=== PATIENT | male | born 1975 | race Caucasian/White ===

== ENCOUNTER 2018-06-04 18:08 | Observation (INO) | payer OTHER ==
[~2018-06-04] VITALS: Ht 185.4 cm; Wt 74.8 kg
[2018-06-04 18:35] VITALS: BP 144/84
--- NOTE | 2018-06-04 18:43 | NUR ---
PT AMBULATES TO BED 5
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
[2018-06-04] MEDS ORDERED: ESCI20TA PO (18:55)
[2018-06-04] MEDS ORDERED: HUM SUBQ (18:55)
[2018-06-04] MEDS ORDERED: FAMO-90 PO (18:55)
--- NOTE | 2018-06-04 19:00 | NUR ---
DR. BALL WANTS TO ASSESS/EVALUATE PATIENT FIRST PRIOR TO 5150 HOLD.TELE PSYCH. CONSULT.CARLOS,EMT WATCHING PATIENT
--- NOTE | 2018-06-04 19:15 | NUR ---
PT IS SITTING UP IN BED, FATHER AT BEDSIDE. WAITING TO TALK TO TELE-PSYCH.
--- NOTE | 2018-06-04 19:21 | NUR ---
REPORT GIVEN TO HUGO CIFUENTES AT THIS TIME. TRANSFER OF CARE.
--- NOTE | 2018-06-04 19:35 | NUR ---
Note maurice in ED - 06/04/18 at 2203 by [email or web address] [place] TO PUT PT ON A HOLD. MADE AWARE. LOOKING FOR PALCEMENT. COMFORT MEASURES OFFERED FOR PT. PT TOLERATED WELL.
--- NOTE | 2018-06-04 19:45 | NUR ---
SPOKE TO PT. PT IS CONCERNED THAT HE IS NOT SAFE AT HOME. HE FEELS SAFE IN ER, RIGHT NOW. HE IS DEPRESSED AND HAS ANXIETY. MD NOTIFIED ABOUT HIS CONCERNS.
--- NOTE | 2018-06-04 19:55 | NUR ---
GAVE BRIEF REPORT TO TELE-PSYCH. DR. GUNN. WILL CONTACT PT WITHIN THE HOUR.
--- NOTE | 2018-06-04 20:05 | NUR ---
TELE-PSYCH IS AT BEDSIDE WITH PT VIA COMPUTER. PT TOLATED WELL.
--- NOTE | 2018-06-04 20:15 | NUR ---
SPOKE TO TELE-PSYCH DR. CHOU. WOULD LIKE TO PUT PT ON A HOLD. NEED TO FIND PLACEMENT FOR HIM. NOTIFIED.
[2018-06-04 20:37] LABS: BASOPHILS # (AUTO) 0.1 K/uL (0.00-0.22); EOSINOPHILS # (AUTO) 0.1 K/uL (0-0.4); EOSINOPHILS % (AUTO) 1.3 % (0.0-4.0); HEMATOCRIT 37.3 % (36-52); HEMOGLOBIN 12.6 g/dL (12.0-18.0); LYMPHOCYTES # (AUTO) 2.4 K/uL (2.0-11.5); MEAN CORPUSCULAR HEMOGLOBIN 31 pg (27-31); MEAN CORPUSCULAR HGB CONC 34 g/dL (33-37); MEAN CORPUSCULAR VOLUME 92.2 fL (80-94); MONOCYTES # (AUTO) 0.6 K/uL (0.8-1.0); MONOCYTES % (AUTO) 8.4 % (1.7-9.3); NEUTROPHILS # (AUTO) 4.4 K/uL (1.8-7.7); NEUTROPHILS % (AUTO) 57.3 % (42.2-75.2); PLATELET COUNT (AUTO) 141 K/uL (140-450); RED BLOOD CELL COUNT(AUTO) 4.05 MIL/uL (4.20-6.10); WHITE BLOOD COUNT (AUTO) 7.6 K/uL (4.8-10.8)
[2018-06-04 21:08] LABS: ALBUMIN 3.8 g/dL (3.4-5.0); ANION GAP 7.8 (8-16); ASPARTATE AMINOTRANSFERASE 22 U/L (15-37); CARBON DIOXIDE 30.9 mmol/L (21-32); CHLORIDE 108 mmol/L (98-107); GLUCOSE 109 mg/dL (74-106); POTASSIUM 3.7 mmol/L (3.5-5.1); SALICYLATE 3.4 mg/dL (2.8-20.0); SODIUM SERUM 143 mmol/L (136-145); TOTAL BILIRUBIN 0.6 mg/dL (0.0-1.0); UREA NITROGEN, BLOOD 6 mg/dL (7-18)
[2018-06-04 21:12] LABS: ACETAMINOPHEN < 0.5 ug/ml (10-30)
[2018-06-04 21:22] LABS: GFR ARICAN-AMERICAN 106 mL/min (>90)
--- NOTE | 2018-06-04 21:30 | NUR ---
[place] [employer] AT BEDSIDE. PT TOLERATED WELL. NOTIFIED
--- NOTE | 2018-06-04 21:35 | NUR ---
[place] TO PUT PT ON A HOLD. MADE AWARE. LOOKING FOR PALCEMENT. COMFORT MEASURES OFFERED FOR PT. PT TOLERATED WELL.
--- NOTE | 2018-06-04 21:45 | NUR ---
PT AMBULATED TO RESTROOM. PT TOLERATED WELL.
--- NOTE | 2018-06-04 22:04 | NUR ---
PT RESTING IN BED. VITALS STABLE.
[2018-06-04 22:17] LABS: APPEARANCE,URINE CLEAR (CLEAR); BILIRUBIN,URINE 1+ (NEGATIVE); BLOOD, URINE NEGATIVE (NEGATIVE); COLOR,URINE YELLOW (YELLOW); LEUKOCYTE ESTERASE ,URINE NEGATIVE (NEGATIVE); NITRITE, URINE NEGATIVE (NEGATIVE); PH,URINE 6.5 (5.0-9.0); UGLUCOSE TRACE (NEGATIVE)
[2018-06-04 22:23] LABS: BARBITURATE, URINE NEG. ng/ml (NEG <=200); BENZODIAZEPINE, URINE NEG. ng/mL (NEG <=200); CANNABINOID, URINE POS. ng/mL (NEG <=50); COCAINE, URINE NEG. ng/mL (NEG <=300); OPIATE, URINE NEG. ng/mL (NEG <=2000); PHENCYCLIDINE SCREEN,URINE NEG. ng/mL (NEG <=25)
[2018-06-04 22:31] LABS: RBC,URINE 0-5 (RARE) /HPF (0-5); WBC,URINE 0-5 (RARE) /HPF (0-5)
[2018-06-04 22:32] LABS: CALCIUM OXALATE CRYSTALS,UR 0-10 /HPF (None Seen)
--- NOTE | 2018-06-04 23:00 | NUR ---
pt is resting. vitals stables.
--- NOTE | 2018-06-04 23:05 | NUR ---
pt sleeping, vitals stable.
--- NOTE | 2018-06-05 01:30 | NUR ---
spoke to abraham from [facility] regarding finding a facility for pt. Abraham requested documents to be faxed to . made aware
--- NOTE | 2018-06-05 01:31 | NUR ---
Packets Faxed to the following designated facilities , which at this time have no vacancy per intakes [facility]- [facility][Note 3] intake [facility]- Jenny intake [facility] intake [facility] ER charge nurse Rebeca ARIAS and ER vehicle check in clerkbrit Lara made aware. Will notify ER if placement is found.
--- NOTE | 2018-06-05 01:44 | NUR ---
pt not feeling right, took acu check and results are 89. gave some orange juice per request. notified.
--- NOTE | 2018-06-05 02:30 | NUR ---
pt sleeping, vitals stable
--- NOTE | 2018-06-05 03:25 | NUR ---
pt sleeping, vitals stable
--- NOTE | 2018-06-05 04:30 | NUR ---
pt sleeping, vitals stable
[2018-06-05] MEDS ORDERED: ONDANSETRON 4 MG/2 ML VIAL IVP PRN (04:50)
[2018-06-05] MEDS ORDERED: ACETAMINOPHEN 325 MG TAB PO PRN (04:50)
[2018-06-05] MEDS ORDERED: INSULIN LISPRO SLIDING SCALE 100 UNITS/ML VIAL SUBQ PRN (04:55)
[2018-06-05] MEDS ORDERED: DEXTROSE 50% 50 ML SYR IVP PRN (04:55)
--- NOTE | 2018-06-05 05:15 | NUR ---
PT BS WAS 42. GAVE HIM SOME ORANGE JUICE AND GRAHM CRACKERS. RECHECK IN 15 IN 15 MINUTES. MADE AWARE. PT TOLERATING FOOD WELL.
--- NOTE | 2018-06-05 05:30 | NUR ---
PT VITALS STABLE, PT SLEEPING
--- NOTE | 2018-06-05 05:53 | NUR ---
SPOKE TO KARLA FROM [facility] FOR POTENTIALY ADMIT TO FACILITY. PT STATED THAT SHE WAS NOT ABLE TO ADMIT HIM DUE TO HIS INSULIN PUMP. SHE WOULD AHVE TO HAVE A NURSE 1 TO 1. THEY CAN NOT ACCOMIDATE HIM PER KARLA. MADE AWARE.
--- NOTE | 2018-06-05 05:54 | NUR ---
BS IS 124. MADE AWARE.
--- NOTE | 2018-06-05 05:55 | NUR ---
PT ARRIVED ON UNIT WITH ER NURSE VIA WHEELCHAIR. PT ABLE TO AMBULATE FROM WHEELCHAIR TO BED. PT IN STABLE CONDITION. PT IS A/O X4. MOOD CALM AND COOPERATIVE. RLE LACERATION AND L BIG TOE CUT NOTED AND PICTURES TAKEN. MRSA SWAB COLLECTED. 1:1 SITTER. NO C/O PAIN AT THIS TIME. BED IS LOCKED, LOW POSITION WITH SIDE RAILS UP X2. WILL CONTINUE TO MONITOR PT.
--- NOTE | 2018-06-05 06:00 | NUR ---
Patient will be admitted to care of DR. PELLETIER. Admited to ICU ([facility]). Will go to room 6. Belongings list completed. Report to KELLY ARIAS.PT VITALS STABLE AT THE TIME OF TRANSFER.
--- NOTE | 2018-06-05 06:00 | NUR ---
Azam richards in ED - 06/05/18 at 0622 by [email or web address] Pt report given to KELLY ARIAS . Transfer of care at this time.PT VITALS STABLE.
--- NOTE | 2018-06-05 06:00 | NUR ---
Pt report given to KELLY ARIAS . Transfer of care at this time.PT VITALS STABLE.
--- NOTE | 2018-06-05 06:20 | NUR ---
Note rajnione in EDM - 06/05/18 at 0622 by HEIDI Patient will be admitted to care of DR. PELLETIER. Admited to ICU ([facility]). Will go to room 6. Belongings list completed. Report to KELLY STREETPT VITALS STABLE AT THE TIME OF TRANSFER.
--- NOTE | 2018-06-05 07:10 | NUR ---
RECEIVED REPORT FROM MARKETING AND PUBLIC RELATIONS MANAGER NURSE. PATIENT A&Ox4.SKIN WARM AND DRY. TWO WOUNDS NOTED, RLE HAS A SCRAP THAT IS SCABBED, LBIG TOE ALSO HAS BRUISING AND WOUND. LUNGS CLEAR. S1S2. ABD SOFT AND NON-TENDER. BOWEL SOUNDS ACTIVE. PATIENT DENIES PAIN AT THIS TIME. PATIENT IS COMPLIANT AND SITTING QUIETLY. WILL CLOSELY MONITOR PATIENT.
--- NOTE | 2018-06-05 07:10 | NUR ---
REPORT GIVEN TO DAY SHIFT NURSE FOR CONTINUITY OF CARE. PT IN STABLE CONDITION.
[2018-06-05] MEDS: BLOOD GLUCOSE MONITORING 1 DEV DEV FS SCH ×3 (07:31→16:35)
--- NOTE | 2018-06-05 07:35 | NUR ---
SPOKE WITH DR CARABALLO REGARDING PATIENT INSULIN PUMP USE. DR CARABALLO STATED TO LET THE PATIENT USE THE PUMP HE NORMALLY WOULD, STATED THAT PATIENT WAS MEDICALLY CLEARED. CALLED PHARM TO VERIFY THAT HE COULD IN FACT USE IS PUMP. THEY STATED LONG THE DR SAID IT WAS OKAY THAT HE COULD USE IS PUMP NORMAL. INFORMED PATIENT TO CONTINUE USING INSULIN PUMP.
[2018-06-05 08:00] VITALS: BP 127/75
--- NOTE | 2018-06-05 08:05 | NUR ---
PATIENT ON PHONE WITH FATHER DAIN TENA #[phone]. Addendum: 06/05/18 at 1009 by Blanca Saez RN #[phone]
--- NOTE | 2018-06-05 08:45 | NUR ---
PATIENT HAS BEEN SCREENED AND CATEGORIZED HIGH NUTRITION RISK. PATIENT WILL BE SEEN WITHIN 1-2 DAYS OF ADMISSION. 06/05/18 06/06/[address]
[2018-06-05] MEDS ORDERED: ESCITALOPRAM 20 MG TAB PO SCH (09:00)
[2018-06-05] MEDS ORDERED: FAMOTIDINE 20 MG TAB PO SCH (09:00)
[2018-06-05] MEDS ORDERED: ENOXAPARIN 40 MG/0.4 ML SYR SUBQ SCH (09:00)
--- NOTE | 2018-06-05 09:59 | NUR ---
CM NOTE PER [facility] FIRODALIZA GARDNER PH# [phone], REVIEW SHOULD BE SENT TO BOTH [facility] AND [facility] INITIAL REVIEW FAXED TO [facility] [phone] KENDRA PH# [phone] ZACH DESIR PH# [phone] AND TO [facility] [phone] PH# [phone].
--- NOTE | 2018-06-05 10:40 | NUR ---
DR CARABALLO AT BEDSIDE
--- NOTE | 2018-06-05 11:00 | NUR ---
DIETARY AT BEDSIDE.
--- NOTE | 2018-06-05 11:26 | NUR ---
Packets faxed to the following facilities: [facility]Elsie Alexis[facility]
--- NOTE | 2018-06-05 12:05 | NUR ---
06/05/18 RD INITIAL ASSESSMENT COMPLETED PLEASE REFER TO NUTRITION ASSESSMENT UNDER CARE ACTIVITY FOR ESTIMATED NUTRITIONAL NEEDS. 1. CONTINUE CCHO 60 GM TOLERATED 2. PROVIDED NUTRITION EDUCATION ON DIABETES 3. RD TO FOLLOW-UP 3-5 DAYS, MODERATE RISK GIUSEPPE CONNE[address]
--- NOTE | 2018-06-05 13:22 | NUR ---
PATIENT SPEAKING WITH FATHER ON THE PHONE AGAIN.
--- NOTE | 2018-06-05 15:36 | NUR ---
DR TERRY, PSYCHOLOGIST, AT BEDSIDE. SPEAKING WITH PATIENT ABOUT CONDITION.
[2018-06-05 16:00] VITALS: BP 149/90
[2018-06-05 16:27] VITALS: BP 149/90
[2018-06-05] MEDS ORDERED: ESCI20TA PO (16:51)
--- NOTE | 2018-06-05 17:15 | NUR ---
PATIENT DISCHARGED. GIVEN ALL DISCHARGE INSTRUCTIONS AND EDUCATION. PATIENT ALSO PROVIDED WITH A LIST OF COMMUNITY RESOURCES. WALKED OUT WITH STEADY GAIT. I WALKED PATIENT TO [facility] AND INSURED HE WAS SAFELY IN. PATIENT WAS STABLE UPON DEPARTURE.
== END 2018-06-05 17:15 | disposition home or self-care (01) ==
LOC: MED 18:08 → MIC 06-05 04:51
PROVIDERS: ADMIT Hospitalist; ATTEND Hospitalist
DX: R45.851 Suicidal ideations (principal); E10.9 Type 1 diabetes mellitus without complications; F12.90 Cannabis use, unspecified, uncomplicated; F41.0 Panic disorder [episodic paroxysmal anxiety]; F33.1 Major depressive disorder, recurrent, moderate; Z79.4 Long term (current) use of insulin
CPT/HCPCS: 36415; 80053; 80305; 81001; 82948; 83036; 85025; 87081; 93005; 96372; 99285; G0378; G0480; G0482; J1650; J1815

== ENCOUNTER 2020-05-31 01:03 | Emergency (ER) | payer OTHER ==
[~2020-05-31] VITALS: Ht 185.4 cm; Wt 87.5 kg
[~2020-05-31 01:03] MED LIST: ESCI20TA PO; FAMO-90 PO; HUM SUBQ
[2020-05-31 01:07] VITALS: BP 147/82
--- NOTE | 2020-05-31 01:10 | NUR ---
PT AMBULATED TO BED 04 WITH STEADY GAIT.
--- NOTE | 2020-05-31 01:20 | NUR ---
Dr. Fleming examining patient.
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
--- NOTE | 2020-05-31 01:30 | NUR ---
STEFAN Ortega AT BEDSIDE PROVIDING WOUND CARE
--- NOTE | 2020-05-31 01:45 | NUR ---
Patient discharged with v/s stable. Written and verbal after care instructions given and explained. Patient alert, oriented and verbalized understanding of instructions. Ambulatory with steady gait. All questions addressed prior to discharge. ID band removed. Patient advised to follow up with PMD. Rx of KEFLEX, MOTRIN given. Patient educated on indication of medication including possible reaction and side effects. Opportunity to ask questions provided and answered.
[2020-05-31 01:48] VITALS: BP 147/82
== END 2020-05-31 01:45 | disposition home or self-care (01) ==
LOC: MED 01:03
DX: S90.561A Insect bite (nonvenomous), right ankle, initial encounter (principal); L03.115 Cellulitis of right lower limb; E10.8 Type 1 diabetes mellitus with unspecified complications; Z90.49 Acquired absence of other specified parts of digestive tract; Z79.899 Other long term (current) drug therapy
CPT/HCPCS: 99283

== ENCOUNTER 2020-06-07 20:08 | Emergency (ER) | payer OTHER ==
[~2020-06-07] VITALS: Ht 185.4 cm; Wt 86.2 kg
[2020-06-07 20:39] VITALS: BP 167/96
--- NOTE | 2020-06-07 20:43 | NUR ---
ambulated to bed 6 with steady gait.
--- NOTE | 2020-06-07 20:45 | NUR ---
44 year old male coming in for wound recheck on right ankle. noted 2x3 cm open wound that has no drainage. no foul odor noted. pt was seen here this past for I&D procedure. states is taking abx. denies any other s/sx. denies any injury or trauma. awaiting MSE. pmhx: DM 1. , HTN nka
[2020-06-07 20:46] VITALS: BP 167/96
== END 2020-06-07 21:41 | disposition home or self-care (01) ==
LOC: MED 20:08
DX: L02.611 Cutaneous abscess of right foot (principal); I10 Essential (primary) hypertension; E10.9 Type 1 diabetes mellitus without complications; Z79.899 Other long term (current) drug therapy; Z79.4 Long term (current) use of insulin
CPT/HCPCS: 99283

== ENCOUNTER 2020-08-18 00:07 | Emergency (ER) | payer OTHER ==
[~2020-08-18] VITALS: Ht 185.4 cm; Wt 90.3 kg
[2020-08-18 00:09] VITALS: BP 148/90
--- NOTE | 2020-08-18 00:09 | NUR ---
ISATU BATISTA. TAKEN TO CHAIR A
--- NOTE | 2020-08-18 00:48 | NUR ---
PATIENT BIB [employer]. PATIENT EXAMINED BY DR. HUERTA. PATIENT MEDICALLY CLEARED AND RELEASED IN CUSTODY IN STABLE CONDITION. ORIGINAL PRE-BOOK FORM GIVEN TO OFFICER SARIKA, #[id number].
== END 2020-08-18 00:46 ==
LOC: MED 00:07
DX: E10.65 Type 1 diabetes mellitus with hyperglycemia (principal); I10 Essential (primary) hypertension; Z02.89 Encounter for other administrative examinations; Z79.4 Long term (current) use of insulin; Z79.899 Other long term (current) drug therapy
CPT/HCPCS: 99283

== ENCOUNTER 2021-04-07 11:07 | Emergency (ER) | payer OTHER ==
[~2021-04-07] VITALS: Ht 185.4 cm; Wt 88.9 kg
[2021-04-07 11:17] VITALS: BP 123/76
--- NOTE | 2021-04-07 11:17 | NUR ---
TO BED AMBULATORY
--- NOTE | 2021-04-07 11:42 | NUR ---
Dr. Hillman is evaluating the patient at bedside.
[2021-04-07] MEDS ORDERED: DICYCLOMINE HCL LIQUID 10 MG/5 ML UDC ONE (11:50)
[2021-04-07] MEDS ORDERED: ALUMINUM HYD/MAG/SIMETHICONE 30 ML UDC ONE (11:50)
--- NOTE | 2021-04-07 11:52 | NUR ---
45 YO M C/O DIARRHEA AND ABDOMINAL PAIN X 5 DAYS. REPORTS BOWEL MOVEMENT EVERY 15 MINS. PT ALSO REPORTS NAUSEA. SYMPTOMS STARTED AFTER EATING PASTRAMI FROM RESTAURANT. DENIES FEVER. NO OTHER MEMBERS OF HOUSEHOLD WITH SAME SYMPTOMS. PT TOOK IMODIUM AND PEPTO BISMUTH WHICH PROVIDED NO RELIEF. IN ED, VSS. ABDOMEN TENDER ON LOWER QUADRANTS WITH HYPERACTIVE BOWEL SOUNDS. ERMD MADE AWARE OF PT STATUS. PMH: TYPE 1 DM, GASTROPARESIS NKA
[2021-04-07] MEDS ORDERED: ONDA-24 PO (11:54)
[2021-04-07] MEDS ORDERED: AMOX-1000 PO (11:54)
[2021-04-07] MEDS: ONDANSETRON 4 MG ODT PO ONE (12:00)
[2021-04-07] MEDS: DICYCLOMINE HCL LIQUID 20 MG, ALUMINUM HYD/MAG/SIMETHICONE 30 ML, LIDOCAINE VISCOUS 2% ... PO ONE ×3 (12:00)
[2021-04-07 12:02] VITALS: BP 123/76
--- NOTE | 2021-04-07 12:02 | NUR ---
Patient discharged with v/s stable. Written and verbal after care instructions given and explained. Patient alert, oriented and verbalized understanding of instructions. Ambulatory with steady gait. All questions addressed prior to discharge. ID band removed. Patient advised to follow up with PMD. Rx of AUGMENTIN, ZOFRAN given. Patient educated on indication of medication including possible reaction and side effects. Opportunity to ask questions provided and answered.
== END 2021-04-07 12:00 | disposition home or self-care (01) ==
LOC: MED 11:07
DX: R19.7 Diarrhea, unspecified (principal); E10.8 Type 1 diabetes mellitus with unspecified complications; I10 Essential (primary) hypertension; Z79.4 Long term (current) use of insulin; Z79.899 Other long term (current) drug therapy
CPT/HCPCS: 99283; Q0162

== ENCOUNTER 2021-12-20 10:16 | Emergency (ER) | payer OTHER ==
[~2021-12-20] VITALS: Ht 185.4 cm; Wt 91.2 kg
[~2021-12-20 10:16] MED LIST changes: +AMOX-1000 PO; +ONDA-188 PO
[2021-12-20 10:19] VITALS: BP 133/81
[2021-12-20] MEDS ORDERED: NACL 0.9% 1,000 ML IV ONE (10:55)
[2021-12-20 11:24] LABS: APPEARANCE,URINE SL CLOUDY (CLEAR); BILIRUBIN,URINE 2+ (NEGATIVE); BLOOD, URINE 3+ (NEGATIVE); COLOR,URINE OTHER (YELLOW); LEUKOCYTE ESTERASE ,URINE 1+ (NEGATIVE); NITRITE, URINE NEGATIVE (NEGATIVE); UGLUCOSE NEGATIVE (NEGATIVE)
[2021-12-20] MEDS ORDERED: CEPH-588 PO (11:46)
[2021-12-20] MEDS ORDERED: cefTRIAXone 1,000 MG VIAL ONE (11:58)
[2021-12-20 12:19] LABS: CALCIUM OXALATE CRYSTALS,UR None Seen /HPF (None Seen); HYALINE CASTS, URINE None Seen /LPF (None Seen); OTHER CRYSTALS,URINE None Seen /HPF (None Seen); TRICHOMONAS,URINE None Seen /HPF (None Seen); TRIPLE PHOSPHATE CRYSTAL,UR None Seen /HPF (None Seen); URIC ACID CRYSTALS,URINE None Seen /HPF (None Seen); URINE AMORPHOUS URATE None Seen /HPF (None Seen); YEAST,URINE Rare /HPF (None Seen)
[2021-12-20 12:20] LABS: COARSE GRANULAR CASTS,URINE None Seen /LPF (None Seen); FINE GRANULAR CASTS,URINE None Seen /LPF (None Seen); OTHER CASTS, URINE None Seen /LPF (None Seen); RED BLOOD CELL CASTS,URINE None Seen /LPF (None Seen); WAXY CASTS,URINE None Seen /LPF (None Seen)
[2021-12-20 13:15] VITALS: BP 157/87
== END 2021-12-20 13:15 | disposition home or self-care (01) ==
LOC: MED 10:16
DX: N39.0 Urinary tract infection, site not specified (principal); E10.9 Type 1 diabetes mellitus without complications; I10 Essential (primary) hypertension; Z79.4 Long term (current) use of insulin; Z79.899 Other long term (current) drug therapy
CPT/HCPCS: 36415; 81001; 87040; 87086; 96361; 96365; 99284; J0696; J7030; 81002

== ENCOUNTER 2022-05-25 22:20 | Emergency (ER) | payer OTHER ==
[~2022-05-25] VITALS: Ht 185.4 cm; Wt 86.2 kg
[~2022-05-25 22:20] MED LIST changes: +CEPH-588 PO
[2022-05-25] MEDS ORDERED: NITROGLYCERIN 0.4 MG TAB SL ONE (22:25)
[2022-05-25] MEDS ORDERED: ASPIRIN 325 MG TAB PO ONE (22:25)
[2022-05-25 22:26] VITALS: BP 144/80
--- NOTE | 2022-05-25 22:26 | NUR ---
TO BED AMBULATORY
--- NOTE | 2022-05-25 22:33 | NUR ---
LAB AT BEDSIDE.
--- NOTE | 2022-05-25 22:33 | NUR ---
46 YO M BIB SELF WITH C/C OF 8/10 PRESSURE-LIKE CHEST PAIN RAD THE LEFT SHOULDER/BACK X2HRS S/P DOING YARD WORK. PT STATES PAIN HAS WORSENED FROM 2HRS AGO. DENIES TAKING MEDICATION FOR PAIN. DENIES HEART PROBLEMS OR CONDITIONS. HX:DM, DEPRESSION RX:INSULIN, LEXAPRO, JARDICE
--- NOTE | 2022-05-25 22:33 | NUR ---
ERMD AT BEDSIDE.
--- NOTE | 2022-05-25 22:36 | NUR ---
RAD AT BEDSIDE
--- NOTE | 2022-05-25 22:42 | NUR ---
1ST NITRO GIVEN SUBLINGUAL BP AT 150/83 HR 88
[2022-05-25 22:44] LABS: BASOPHILS # (AUTO) 0.1 K/uL (0.00-0.22); EOSINOPHILS # (AUTO) 0.1 K/uL (0-0.4); EOSINOPHILS % (AUTO) 1.1 % (0.0-4.0); HEMOGLOBIN 13.2 g/dL (12.0-18.0); LYMPHOCYTES # (AUTO) 3.3 K/uL (2.0-11.5); LYMPHOCYTES % (AUTO) 31.8 % (20.5-51.1); MEAN CORPUSCULAR HEMOGLOBIN 31 pg (27-31); MEAN CORPUSCULAR HGB CONC 34 g/dL (33-37); MEAN CORPUSCULAR VOLUME 90.3 fL (80-94); MONOCYTES # (AUTO) 1.1 K/uL (0.8-1.0); MONOCYTES % (AUTO) 10.8 % (1.7-9.3); NEUTROPHILS # (AUTO) 5.8 K/uL (1.8-7.7); NEUTROPHILS % (AUTO) 55.3 % (42.2-75.2); PLATELET COUNT (AUTO) 186 K/uL (140-450); RED BLOOD CELL COUNT(AUTO) 4.31 MIL/uL (4.20-6.10); RED CELL DISTRIBUTION WIDTH 13.5 % (11.6-13.7); WHITE BLOOD COUNT (AUTO) 10.4 K/uL (4.8-10.8)
[2022-05-25] MEDS ORDERED: EMPA10TA PO (22:51)
--- NOTE | 2022-05-25 22:51 | NUR ---
CHEST PAIN AT 7, 2ND NITRO GIVEN. BP AT 125/83 HR 91
--- NOTE | 2022-05-25 22:59 | NUR ---
CHEST PAIN /, 3RD NITRO GIVEN SUBLINGUAL BP AT 131/83 HR87
--- NOTE | 2022-05-25 23:08 | NUR ---
CHEST PAIN DECREASED TO 5/10, PT STATES HE ONLY FEELS DISCOMFORT BUT PAIN/PRESSURE HAS EASED.
[2022-05-25 23:15] LABS: ALBUMIN 4.3 g/dL (3.4-5.0); CARBON DIOXIDE 23.9 mmol/L (21-32); POTASSIUM 3.6 mmol/L (3.5-5.1); SODIUM SERUM 141 mmol/L (136-145)
--- NOTE | 2022-05-25 23:17 | NUR ---
MED RECON COMPLETED. NO WOUNDS PER BODY CHECK. SIMEON ESTAB TO RT FOREARM 20G.
[2022-05-25 23:18] LABS: ANION GAP 15.7 (8-16); ASPARTATE AMINOTRANSFERASE 30 U/L (15-37); CHLORIDE 105 mmol/L (98-107); CREATININE 1.2 mg/dL (0.6-1.3); GFR ARICAN-AMERICAN 85 mL/min (>90); GLUCOSE 121 mg/dL (74-106); TOTAL BILIRUBIN 0.8 mg/dL (0.0-1.0); UREA NITROGEN, BLOOD 14 mg/dL (7-18)
--- NOTE | 2022-05-25 23:56 | NUR ---
PT AMBUALTED TO RR AND BACK TO BED. WARM BLANKET PROVIDED.
--- NOTE | 2022-05-26 00:43 | NUR ---
SPOKE TO DOMI HIGH REACH OPERATOR AT [facility], STATED [facility] IS NOT CONTRACTED THEREFORE PT WILL BE TRANSFERED OUT, STATES SHE WILL FIND A BED AT POSSIBLY [facility], STILL NOT SURE BUT WILL CALL WITH BED. STATED TO FAX OVER CLINICALS AND WE WILL BE UPDATED WITH TRANSFER AND BED
--- NOTE | 2022-05-26 01:21 | NUR ---
PT IS RESTING. EQUAL RISE AND FALL OF CHEST WALL. OPENS EYES TO SOUND. VSS. ALL NEEDS MET AT THIS TIME. BED LOCKED IN LOWEST POSITION, SIDE RAILS X2 FOR SAFETY
--- NOTE | 2022-05-26 02:01 | NUR ---
PT AMBULATED TO RR AND BACK OT BED
--- NOTE | 2022-05-26 02:07 | NUR ---
PT BACK ON BED FROM RR. BACK ON STORE COORDINATOR.
--- NOTE | 2022-05-26 03:25 | NUR ---
REPORT GIVEN TO HUGO MCQUEEN AT [facility]. [phone] [phone] GOING TO BED 403 TELE FLOOR
--- NOTE | 2022-05-26 03:29 | NUR ---
PT AMBUALTED TO RR AND BACK OT BED. PT PLACED BACK ON METAL FORGER'S ASSISTANT.
--- NOTE | 2022-05-26 05:29 | NUR ---
PT IS AWAKE AND ALERT SITTING UP IN BED USING PHONE. ALL NEEDS MET AT THIS TIME. BED LOCKED IN LOWEST POSITION,SIDE RAILS X2 FOR SAFETY. PT ON POWER PLANT ELECTRICIAN.
--- NOTE | 2022-05-26 05:45 | NUR ---
[facility] ARRIVED FOR RESEARCH PROFESSOR. REPORT GIVEN.
[2022-05-26 05:51] VITALS: BP 150/86
--- NOTE | 2022-05-26 05:51 | NUR ---
Patient to be transferred to [facility]. Is being transferred due to HIGHER LEVEL OF CARE. Receiving facility has accepting physician and available space. ER physician has signed transfer form. Patient or responsible democrat has agreed to transfer and signed form. Patient belongings inventoried and will be sent with patient. Copy of nursing notes, lab reports, EKG, Physicians Orders and X-rays to be sent with patient. Report called to HUGO MCQUEEN at receiving facility. [facility] ambulance service has been called for transfer. ETA is ABOUT 30MINS.
--- NOTE | 2022-05-26 05:51 | NUR ---
[facility] left with patient at this time
== END 2022-05-26 05:00 | disposition short-term general hospital (02) ==
LOC: MED 22:20
DX: R07.9 Chest pain, unspecified (principal); Z20.822 Contact with and (suspected) exposure to COVID-19; I10 Essential (primary) hypertension; Z98.890 Other specified postprocedural states
CPT/HCPCS: 36415; 71045; 80053; 84484; 85025; 93005; 99285

== ENCOUNTER 2024-06-01 13:14 | Emergency (ER) | payer MEDICARE, OTHER ==
[~2024-06-01] VITALS: Ht 185.4 cm; Wt 74.8 kg
[~2024-06-01 13:14] MED LIST changes: +EMPA10TA PO
[2024-06-01 13:23] VITALS: BP 109/76; PULSE 115; RESP 20; TEMP 97.6; O2SAT 100
[2024-06-01] MEDS: NACL 0.9% 1,000 ML IV ONE (13:51)
[2024-06-01] MEDS: KETOROLAC 30 MG/ML VIAL IVP ONE (14:01)
[2024-06-01 14:05] LABS: BASOPHILS # (AUTO) 0.1 K/uL (0.00-0.22); BASOPHILS % (AUTO) 0.8 % (0.0-2.0); EOSINOPHILS # (AUTO) 0.2 K/uL (0-0.4); EOSINOPHILS % (AUTO) 1.8 % (0.0-4.0); HEMATOCRIT 38.5 % (36-52); HEMOGLOBIN 12.7 g/dL (12.0-18.0); LYMPHOCYTES # (AUTO) 1.4 K/uL (2.0-11.5); LYMPHOCYTES % (AUTO) 16.8 % (20.5-51.1); MEAN CORPUSCULAR HEMOGLOBIN 30 pg (27-31); MEAN CORPUSCULAR HGB CONC 33 g/dL (33-37); MEAN CORPUSCULAR VOLUME 90.6 fL (80-94); MONOCYTES # (AUTO) 0.9 K/uL (0.8-1.0); MONOCYTES % (AUTO) 11.1 % (1.7-9.3); NEUTROPHILS # (AUTO) 5.8 K/uL (1.8-7.7); NEUTROPHILS % (AUTO) 69.5 % (42.2-75.2); PLATELET COUNT (AUTO) 260 K/uL (140-450); RED BLOOD CELL COUNT(AUTO) 4.25 MIL/uL (4.20-6.10); RED CELL DISTRIBUTION WIDTH 12.9 % (11.6-13.7); WHITE BLOOD COUNT (AUTO) 8.3 K/uL (4.8-10.8)
[2024-06-01 14:20] LABS: ALBUMIN 3.2 g/dL (3.4-5.0); BILIRUBIN,DIRECT 0.2 mg/dL (0.0-0.3); TOTAL BILIRUBIN 0.8 mg/dL (0.0-1.0); TOTAL PROTEIN, SERUM 7.3 g/dL (6.4-8.2)
[2024-06-01] MEDS ORDERED: CEPH-588 PO (14:45)
[2024-06-01] MEDS ORDERED: IBUP-2213 PO (14:45)
[2024-06-01 14:55] VITALS: BP 110/71; PULSE 99; RESP 17; TEMP 97.6; O2SAT 100
[2024-06-01 15:08] LABS: CALCIUM 8.3 mg/dL (8.5-10.1); CARBON DIOXIDE 23.4 mmol/L (21-32); CREATININE 1.2 mg/dL (0.6-1.3); POTASSIUM 4.4 mmol/L (3.5-5.1)
== END 2024-06-01 15:00 | disposition home or self-care (01) ==
LOC: MED 13:14
DX: L03.116 Cellulitis of left lower limb (principal); E10.9 Type 1 diabetes mellitus without complications; I10 Essential (primary) hypertension; M19.90 Unspecified osteoarthritis, unspecified site; Z90.49 Acquired absence of other specified parts of digestive tract; Z79.899 Other long term (current) drug therapy
CPT/HCPCS: 36415; 73630; 80048; 80076; 82948; 85025; 96361; 96374; 99284; J1885; J7030

== ENCOUNTER 2024-06-04 19:05 | Emergency (ER) | payer MEDICARE, OTHER ==
[~2024-06-04] VITALS: Ht 185.4 cm; Wt 72.2 kg
[~2024-06-04 19:05] MED LIST changes: +IBUP-2213 PO
[2024-06-04 19:14] VITALS: BP 111/72; PULSE 102; RESP 18; TEMP 98.2; O2SAT 99
== END 2024-06-04 20:52 | disposition left against medical advice (07) ==
LOC: MED 19:05
DX: M79.672 Pain in left foot (principal); Z53.21 Procedure and treatment not carried out due to patient leaving prior to being seen by health care provider